=== PATIENT | female | born 1990 | race Two or more races ===

== ENCOUNTER 2020-09-10 00:18 | Emergency (ER) | payer OTHER ==
[~2020-09-10] VITALS: Ht 165.1 cm; Wt 123.4 kg
[2020-09-10] MEDS ORDERED: AVAPRO300 MG (01:31)
[2020-09-10] MEDS ORDERED: HYDROCHLOROTHIA25 MG (01:31)
[2020-09-10] MEDS ORDERED: PENTOXIFYLLINE400 MG (01:32)
[2020-09-10] MEDS ORDERED: CEPHALEXIN500 M1 PO (07:20)
[2020-09-10] MEDS ORDERED: ORPHENADRINE C100 MG PO (07:21)
[2020-09-10] MEDS ORDERED: KETO10TA2 PO (07:21)
== END 2020-09-10 07:35 | disposition home or self-care (01) ==
LOC: ER 00:18
DX: N39.0 Urinary tract infection, site not specified (principal); M54.5 Low back pain

== ENCOUNTER 2022-08-05 11:19 | Inpatient (IN) | payer OTHER ==
[~2022-08-05] VITALS: Ht 165.1 cm; Wt 126.6 kg
[~2022-08-05 11:19] MED LIST: AVAPRO300 MG; CEPHALEXIN500 M1 PO; HYDROCHLOROTHIA25 MG; KETO10TA2 PO; ORPHENADRINE C100 MG PO; PENTOXIFYLLINE400 MG
[2022-08-05] MEDS ORDERED: COZAAR25 MG PO (12:05)
[2022-08-05] MEDS ORDERED: ANTARA30 MG (12:05)
[2022-08-05] MEDS ORDERED: ZOCOR20 MG PO (12:06)
== END 2022-08-09 18:04 | disposition home or self-care (01) | DRG 394 ==
LOC: ER 11:19 → MEDI 18:35
PROVIDERS: ADMIT Internal Medicine; ATTEND Internal Medicine
PROC: BW21YZZ Computerized Tomography (CT Scan) of Abdomen and Pelvis using Other Contrast (ICD-10-PCS; principal; 2022-08-05)
DX: K63.89 Other specified diseases of intestine (principal); K90.49 Malabsorption due to intolerance, not elsewhere classified; I10 Essential (primary) hypertension; E66.01 Morbid (severe) obesity due to excess calories